=== PATIENT | male | born 1945 | race Caucasian/White ===

== ENCOUNTER 2022-01-01 13:45 | Inpatient (IN) ==
[2022-01-01 19:40] LABS: Basophils # 0.1 K/mcL (0.0-0.2); Basophils % 0.7 %; Eosinophils # 0.1 K/mcL (0.0-0.6); Eosinophils % 0.9 %; Hematocrit 38.2 % (37.5-50.1); Hemoglobin 12.3 g/dL (12.9-16.9); Immature Granulocytes % 0.3 % (0-4); Lymphocytes # 1.6 K/mcL (0.6-4.6); Lymphocytes % 23.8 %; Mean Corpuscular HGB Conc 32.2 g/dL (31.6-35.5); Mean Corpuscular Volume 93.2 fL (83.0-100.0); Mean Platelet Volume 10.9 fL (9.4-12.4); Monocytes # 0.7 K/mcL (0.0-1.3); Monocytes % 10.6 %; Neutrophils # 4.4 K/mcL (1.6-8.9); Platelet Count 210 K/mcL (140-400); Red Cell Distribution Width 14.1 % (11.5-14.5); Segmented Neutrophils % 63.7 %; White Blood Count 6.9 K/mcL (4.3-11.1)
[2022-01-01 19:52] LABS: INR 1.5; Prothrombin Time 16.6 Seconds (9.4-12.1)
[2022-01-01 20:00] LABS: Alanine Aminotransferase 13 Units/L (7-52); Albumin/Globulin Ratio 1.7 (1.1-2.2); Alkaline Phosphatase 85 Units/L (34-104); Aspartate Amino Transferase 18 Units/L (13-39); BUN/Creatinine Ratio 29 (6-26); Bilirubin,Total 0.4 mg/dL (0.3-1.0); Blood Urea Nitrogen 36 mg/dL (8-23); Calcium 9.8 mg/dL (8.6-10.3); Carbon Dioxide 30 mEq/L (23-29); Chloride 103 mEq/L (98-107); Globulin 2.4 g/dL (2.4-3.5); Glucose 173 mg/dL (70-105); Osmolality,Calculated 300 (280-300); Potassium 3.4 mEq/L (3.5-5.1); Sodium 139 mEq/L (136-145); Total Protein 6.4 g/dL (6.4-8.9); eGFR For African Americans > 60 (> 60); eGFR For Non-African Americans 55 (> 60)
[2022-01-01] MEDS ORDERED: levETIRAcetam 1,000 MG in 0.9 % Sodium Chloride 100 ML IVPB ONE (20:16)
[2022-01-02] MEDS ORDERED: Isovue-370 500 ML BOTTLE IVP ONE (09:55)
[2022-01-02] MEDS ORDERED: dexAMETHasone 4 MG TABLET PO ONE (11:42)
[2022-01-02] MEDS ORDERED: Gadolinium Contrast Agent (WT Based) IV PRN (11:45)
[2022-01-02] MEDS ORDERED: Naloxone 0.4 MG/ML INJ IVP PRN (14:02)
[2022-01-02] MEDS ORDERED: Acetaminophen 325 MG TABLET PO PRN (14:02)
[2022-01-02] MEDS ORDERED: Ondansetron 4 MG/2 ML VIAL IVP PRN (14:02)
[2022-01-02] MEDS ORDERED: Dextrose Gel 15 GM/37.5 ML TUBE PO PRN ×2 (14:11)
[2022-01-02] MEDS ORDERED: *HR* Dextrose 50 % in Water (Syg) 50 ML SYRINGE IVP PRN (14:11)
[2022-01-02] MEDS ORDERED: D5% in Water 1,000 ML IVC PRN (14:11)
[2022-01-02] MEDS: dexAMETHasone 4 MG TABLET PO SCH ×3 (14:50→22:20)
[2022-01-02 14:57] LABS: Estimated Average Glucose 126 mg/dl
[2022-01-02] MEDS: Insulin LISPRO 300 UNITS/3 ML VIAL SUBQ SCH ×2 (16:34→21:57)
[2022-01-02] MEDS: levETIRAcetam 250 MG TABLET PO SCH (17:16)
[2022-01-02] MEDS: clonazePAM 1 MG TABLET PO SCH (22:20)
[2022-01-03 01:13] LABS: Basophils % 0.2 %; Hematocrit 36.5 % (37.5-50.1); Hemoglobin 11.6 g/dL (12.9-16.9); Immature Granulocytes % 0.3 % (0-4); Lymphocytes # 0.8 K/mcL (0.6-4.6); Lymphocytes % 8.4 %; Mean Corpuscular HGB Conc 31.8 g/dL (31.6-35.5); Mean Corpuscular Hemoglobin 29.4 pg (28.0-33.3); Mean Corpuscular Volume 92.6 fL (83.0-100.0); Mean Platelet Volume 11.2 fL (9.4-12.4); Monocytes # 0.2 K/mcL (0.0-1.3); Monocytes % 1.9 %; Neutrophils # 8.5 K/mcL (1.6-8.9); Platelet Count 212 K/mcL (140-400); Red Blood Count 3.94 M/mcL (4.19-5.50); Red Cell Distribution Width 14.3 % (11.5-14.5); Segmented Neutrophils % 89.2 %; White Blood Count 9.5 K/mcL (4.3-11.1)
[2022-01-03 01:28] LABS: BUN/Creatinine Ratio 29 (6-26); Blood Urea Nitrogen 35 mg/dL (8-23); Calcium 9.4 mg/dL (8.6-10.3); Carbon Dioxide 25 mEq/L (23-29); Chloride 105 mEq/L (98-107); Glucose 177 mg/dL (70-105); Osmolality,Calculated 298 (280-300); Potassium 3.5 mEq/L (3.5-5.1); Sodium 138 mEq/L (136-145); eGFR For African Americans > 60 (> 60); eGFR For Non-African Americans 59 (> 60)
[2022-01-03] MEDS: levETIRAcetam 250 MG TABLET PO SCH ×2 (05:05→17:25)
[2022-01-03] MEDS: Insulin LISPRO 300 UNITS/3 ML VIAL SUBQ SCH ×4 (09:26→20:44)
[2022-01-03] MEDS: clonazePAM 1 MG TABLET PO SCH ×3 (09:26→22:06)
[2022-01-03] MEDS: dexAMETHasone 4 MG TABLET PO SCH ×4 (09:26→20:44)
[2022-01-03] MEDS ORDERED: NON-FORMULARY MEDICATION 1 EACH EACH PO SCH (17:00)
[2022-01-03] MEDS: PHENELZINE SULFATE 15 MG PO SCH ×2 (17:25→22:07)
[2022-01-04] MEDS: levETIRAcetam 250 MG TABLET PO SCH ×2 (05:03→18:24)
[2022-01-04] MEDS: clonazePAM 1 MG TABLET PO SCH ×3 (08:06→20:50)
[2022-01-04] MEDS: dexAMETHasone 4 MG TABLET PO SCH ×4 (08:07→20:50)
[2022-01-04] MEDS: PHENELZINE SULFATE 15 MG PO SCH ×3 (08:10→21:41)
[2022-01-04] MEDS: Insulin LISPRO 300 UNITS/3 ML VIAL SUBQ SCH ×4 (08:52→21:38)
[2022-01-05 02:38] LABS: Basophils % 0.1 %; Hematocrit 36.6 % (37.5-50.1); Hemoglobin 12.2 g/dL (12.9-16.9); Immature Granulocytes % 0.8 % (0-4); Lymphocytes # 0.7 K/mcL (0.6-4.6); Lymphocytes % 6.3 %; Mean Corpuscular HGB Conc 33.3 g/dL (31.6-35.5); Mean Corpuscular Hemoglobin 30.7 pg (28.0-33.3); Mean Platelet Volume 11.3 fL (9.4-12.4); Monocytes # 0.2 K/mcL (0.0-1.3); Monocytes % 2.1 %; Neutrophils # 9.3 K/mcL (1.6-8.9); Platelet Count 220 K/mcL (140-400); Red Blood Count 3.98 M/mcL (4.19-5.50); Red Cell Distribution Width 14.1 % (11.5-14.5); Segmented Neutrophils % 90.7 %; White Blood Count 10.3 K/mcL (4.3-11.1)
[2022-01-05 03:01] LABS: BUN/Creatinine Ratio 40 (6-26); Blood Urea Nitrogen 48 mg/dL (8-23); Calcium 9.2 mg/dL (8.6-10.3); Carbon Dioxide 27 mEq/L (23-29); Chloride 102 mEq/L (98-107); Glucose 181 mg/dL (70-105); Magnesium 1.7 mg/dL (1.6-2.6); Osmolality,Calculated 299 (280-300); Phosphorous 2.6 mg/dL (2.7-4.5); Potassium 3.9 mEq/L (3.5-5.1); Sodium 136 mEq/L (136-145); eGFR For African Americans > 60 (> 60); eGFR For Non-African Americans 58 (> 60)
[2022-01-05] MEDS: levETIRAcetam 250 MG TABLET PO SCH ×2 (05:35→18:02)
[2022-01-05] MEDS: Insulin LISPRO 300 UNITS/3 ML VIAL SUBQ SCH ×3 (09:44→18:14)
[2022-01-05] MEDS: dexAMETHasone 4 MG TABLET PO SCH ×4 (09:51→21:42)
[2022-01-05] MEDS: clonazePAM 1 MG TABLET PO SCH ×3 (09:52→21:42)
[2022-01-05] MEDS: PHENELZINE SULFATE 15 MG PO SCH ×3 (11:50→18:06)
[2022-01-06] MEDS: Insulin LISPRO 300 UNITS/3 ML VIAL SUBQ SCH ×3 (00:44→12:19)
[2022-01-06 03:53] LABS: Basophils % 0.1 %; Hematocrit 40.3 % (37.5-50.1); Hemoglobin 13.2 g/dL (12.9-16.9); Immature Granulocytes % 0.8 % (0-4); Lymphocytes # 0.7 K/mcL (0.6-4.6); Lymphocytes % 7.4 %; Mean Corpuscular HGB Conc 32.8 g/dL (31.6-35.5); Mean Corpuscular Hemoglobin 30.1 pg (28.0-33.3); Mean Corpuscular Volume 91.8 fL (83.0-100.0); Mean Platelet Volume 11.4 fL (9.4-12.4); Monocytes # 0.5 K/mcL (0.0-1.3); Monocytes % 5.4 %; Neutrophils # 8.4 K/mcL (1.6-8.9); Platelet Count 225 K/mcL (140-400); Red Blood Count 4.39 M/mcL (4.19-5.50); Red Cell Distribution Width 13.9 % (11.5-14.5); Segmented Neutrophils % 86.3 %; White Blood Count 9.7 K/mcL (4.3-11.1)
[2022-01-06 04:14] LABS: BUN/Creatinine Ratio 36 (6-26); Blood Urea Nitrogen 42 mg/dL (8-23); Calcium 9.2 mg/dL (8.6-10.3); Carbon Dioxide 28 mEq/L (23-29); Chloride 101 mEq/L (98-107); Glucose 167 mg/dL (70-105); Magnesium 1.8 mg/dL (1.6-2.6); Osmolality,Calculated 296 (280-300); Phosphorous 2.6 mg/dL (2.7-4.5); Potassium 3.7 mEq/L (3.5-5.1); Sodium 136 mEq/L (136-145); eGFR For African Americans > 60 (> 60); eGFR For Non-African Americans > 60 (> 60)
[2022-01-06] MEDS: levETIRAcetam 250 MG TABLET PO SCH (06:08)
[2022-01-06] MEDS: clonazePAM 1 MG TABLET PO SCH (08:06)
[2022-01-06] MEDS: dexAMETHasone 4 MG TABLET PO SCH ×2 (08:06→14:00)
[2022-01-06] MEDS: PHENELZINE SULFATE 15 MG PO SCH (08:08)
[2022-01-06 10:37] VITALS: BP 105/62; PULSE 82; TEMP 98.3; O2SAT 94
== END 2022-01-06 14:08 | disposition home or self-care (01) | DRG 54 ==
LOC: EMEROOARM 13:45 → 3ANU 13:45
PROVIDERS: ADMIT General Practice; ATTEND General Practice

== ENCOUNTER 2022-02-13 13:20 | Inpatient (IN) ==
[2022-02-13] MEDS ORDERED: Ondansetron 4 MG/2 ML VIAL IVP PRN (16:47)
[2022-02-13] MEDS ORDERED: Naloxone 0.4 MG/ML INJ IVP PRN (16:47)
[2022-02-13] MEDS ORDERED: Acetaminophen 325 MG TABLET PO PRN (16:47)
[2022-02-13] MEDS: levoFLOXacin 750 MG/150 ML 750 MG/150 ML BAG IVPB SCH (17:39)
[2022-02-13 17:46] LABS: BUN/Creatinine Ratio 19 (6-26); Blood Urea Nitrogen 16 mg/dL (8-23); Calcium 7.9 mg/dL (8.6-10.3); Carbon Dioxide 26 mEq/L (23-29); Chloride 106 mEq/L (98-107); Glucose 109 mg/dL (70-105); Osmolality,Calculated 288 (280-300); Potassium 3.4 mEq/L (3.5-5.1); Sodium 138 mEq/L (136-145); eGFR For African Americans > 60 (> 60); eGFR For Non-African Americans > 60 (> 60)
[2022-02-13] MEDS ORDERED: D5% in 0.9% NACL w KCl 20 MEQ/1,000 ML MLS IVC SCH (18:00)
[2022-02-13] MEDS ORDERED: *HR* Dextrose 50 % in Water (Syg) 50 ML SYRINGE IVP PRN (18:17)
[2022-02-13] MEDS ORDERED: Dextrose 4 GM Chewable Tablets PO PRN ×2 (18:17)
[2022-02-13] MEDS ORDERED: D5% in Water 1,000 ML IVC PRN (18:17)
[2022-02-13] MEDS ORDERED: *HR* LORazepam 2 MG/ML VIAL IVP PRN (18:21)
[2022-02-13] MEDS ORDERED: *HR* Metoprolol 5 MG/5 ML VIAL IVP PRN (18:22)
[2022-02-13] MEDS: Apixaban 5 MG TABLET PO SCH (22:04)
[2022-02-14] MEDS: Insulin LISPRO 300 UNITS/3 ML VIAL SUBQ SCH ×4 (01:44→20:19)
[2022-02-14 06:32] LABS: Hematocrit 31.7 % (37.5-50.1); Hemoglobin 10.5 g/dL (12.9-16.9); Lymphocytes # 1.3 K/mcL (0.6-4.6); Mean Corpuscular HGB Conc 33.1 g/dL (31.6-35.5); Mean Corpuscular Hemoglobin 30.3 pg (28.0-33.3); Mean Corpuscular Volume 91.4 fL (83.0-100.0); Mean Platelet Volume 9.8 fL (9.4-12.4); Platelet Count 132 K/mcL (140-400); Red Blood Count 3.47 M/mcL (4.19-5.50); Red Cell Distribution Width 14.2 % (11.5-14.5); White Blood Count 4.4 K/mcL (4.3-11.1)
[2022-02-14 06:39] LABS: INR 3.1; Prothrombin Time 33.9 Seconds (9.4-12.1)
[2022-02-14 06:58] LABS: Albumin 2.8 g/dL (3.5-5.7); Albumin/Globulin Ratio 1.3 (1.1-2.2); Bilirubin,Direct 0.1 mg/dL (0.0-0.2); Bilirubin,Indirect 0.5 mg/dL (0.0-1.0); Bilirubin,Total 0.6 mg/dL (0.3-1.0); Globulin 2.1 g/dL (2.4-3.5); Total Protein 4.9 g/dL (6.4-8.9)
[2022-02-14 07:08] LABS: Thyroid Stimulating Hormone 0.028 mcIU/mL (0.340-5.600)
[2022-02-14 07:09] LABS: Triiodothyronine (T3) Free 2.72 pg/mL (2.50-3.90)
[2022-02-14 07:10] LABS: BUN/Creatinine Ratio 21 (6-26); Blood Urea Nitrogen 17 mg/dL (8-23); Calcium 8.2 mg/dL (8.6-10.3); Carbon Dioxide 27 mEq/L (23-29); Chloride 107 mEq/L (98-107); Glucose 207 mg/dL (70-105); Magnesium 1.6 mg/dL (1.6-2.6); Neutrophils # 3.1 K/mcL (1.6-8.9); Osmolality,Calculated 294 (280-300); Potassium 3.8 mEq/L (3.5-5.1); Sodium 138 mEq/L (136-145); eGFR For African Americans > 60 (> 60); eGFR For Non-African Americans > 60 (> 60)
[2022-02-14 07:11] LABS: Platelet Estimate Decreased (Normal); Reactive Lymphocytes Present (Not Present)
[2022-02-14] MEDS: levoFLOXacin 750 MG/150 ML 750 MG/150 ML BAG IVPB SCH (08:06)
[2022-02-14] MEDS: Apixaban 5 MG TABLET PO SCH ×2 (08:08→20:18)
[2022-02-14] MEDS: Pantoprazole 40 MG VIAL IVP SCH (08:08)
[2022-02-14] MEDS ORDERED: Levothyroxine Sodium 100 MCG VIAL IVP SCH (09:00)
[2022-02-14] MEDS: levETIRAcetam 250 MG TABLET PO SCH (14:42)
[2022-02-14] MEDS: PHENELZINE SULFATE 15 MG PO SCH ×2 (14:43→20:22)
[2022-02-14] MEDS: clonazePAM 1 MG TABLET PO SCH (20:17)
[2022-02-15] MEDS: levETIRAcetam 250 MG TABLET PO SCH ×2 (03:23→12:39)
[2022-02-15 07:13] LABS: Basophils % 0.2 %; Hematocrit 31.3 % (37.5-50.1); Hemoglobin 10.2 g/dL (12.9-16.9); Immature Granulocytes % 1.4 % (0-4); Lymphocytes # 1.7 K/mcL (0.6-4.6); Lymphocytes % 20.9 %; Mean Corpuscular HGB Conc 32.6 g/dL (31.6-35.5); Mean Corpuscular Hemoglobin 29.6 pg (28.0-33.3); Mean Corpuscular Volume 90.7 fL (83.0-100.0); Mean Platelet Volume 9.8 fL (9.4-12.4); Monocytes # 0.6 K/mcL (0.0-1.3); Monocytes % 7.1 %; Platelet Count 179 K/mcL (140-400); Red Blood Count 3.45 M/mcL (4.19-5.50); Red Cell Distribution Width 14.5 % (11.5-14.5); Segmented Neutrophils % 70.4 %
[2022-02-15 07:28] LABS: Neutrophils # 5.6 K/mcL (1.6-8.9)
[2022-02-15 07:35] LABS: BUN/Creatinine Ratio 24 (6-26); Blood Urea Nitrogen 22 mg/dL (8-23); Calcium 8.4 mg/dL (8.6-10.3); Carbon Dioxide 28 mEq/L (23-29); Chloride 105 mEq/L (98-107); Glucose 194 mg/dL (70-105); Magnesium 1.7 mg/dL (1.6-2.6); Osmolality,Calculated 293 (280-300); Potassium 3.4 mEq/L (3.5-5.1); Sodium 137 mEq/L (136-145); eGFR For African Americans > 60 (> 60); eGFR For Non-African Americans > 60 (> 60)
[2022-02-15] MEDS ORDERED: Potassium Chloride Elixir 20 MEQ/15 ML UDC PO ONE (07:52)
[2022-02-15] MEDS: clonazePAM 1 MG TABLET PO SCH ×2 (08:23→20:46)
[2022-02-15] MEDS: Apixaban 5 MG TABLET PO SCH ×2 (08:23→20:46)
[2022-02-15] MEDS: Multivit/Ca/Min/Fe/FA 1 TAB TABLET PO SCH (08:23)
[2022-02-15] MEDS: Pantoprazole 40 MG VIAL IVP SCH (08:24)
[2022-02-15] MEDS: levoFLOXacin 750 MG/150 ML 750 MG/150 ML BAG IVPB SCH (08:24)
[2022-02-15] MEDS: PHENELZINE SULFATE 15 MG PO SCH ×3 (08:24→20:53)
[2022-02-15] MEDS: Insulin LISPRO 300 UNITS/3 ML VIAL SUBQ SCH ×4 (08:25→20:39)
[2022-02-16] MEDS: levETIRAcetam 250 MG TABLET PO SCH ×2 (01:00→13:01)
[2022-02-16 05:32] LABS: Basophils # 0.1 K/mcL (0.0-0.2); Basophils % 0.7 %; Hematocrit 33.1 % (37.5-50.1); Hemoglobin 10.9 g/dL (12.9-16.9); Lymphocytes # 1.6 K/mcL (0.6-4.6); Lymphocytes % 15.2 %; Mean Corpuscular HGB Conc 32.9 g/dL (31.6-35.5); Mean Corpuscular Hemoglobin 29.8 pg (28.0-33.3); Mean Corpuscular Volume 90.4 fL (83.0-100.0); Monocytes # 0.6 K/mcL (0.0-1.3); Monocytes % 5.7 %; Neutrophils # 7.6 K/mcL (1.6-8.9); Platelet Count 236 K/mcL (140-400); Red Blood Count 3.66 M/mcL (4.19-5.50); Red Cell Distribution Width 14.3 % (11.5-14.5); Segmented Neutrophils % 73.4 %; White Blood Count 10.3 K/mcL (4.3-11.1)
[2022-02-16 05:49] LABS: BUN/Creatinine Ratio 35 (6-26); Blood Urea Nitrogen 29 mg/dL (8-23); Calcium 8.4 mg/dL (8.6-10.3); Carbon Dioxide 27 mEq/L (23-29); Chloride 102 mEq/L (98-107); Glucose 208 mg/dL (70-105); Magnesium 1.7 mg/dL (1.6-2.6); Osmolality,Calculated 290 (280-300); Potassium 3.9 mEq/L (3.5-5.1); Sodium 134 mEq/L (136-145); eGFR For African Americans > 60 (> 60); eGFR For Non-African Americans > 60 (> 60)
[2022-02-16 08:11] VITALS: BP 173/74; PULSE 60; TEMP 97.9; O2SAT 92
[2022-02-16] MEDS: Insulin LISPRO 300 UNITS/3 ML VIAL SUBQ SCH ×2 (08:38→12:15)
[2022-02-16] MEDS: Apixaban 5 MG TABLET PO SCH (08:39)
[2022-02-16] MEDS: Multivit/Ca/Min/Fe/FA 1 TAB TABLET PO SCH (08:39)
[2022-02-16] MEDS: clonazePAM 1 MG TABLET PO SCH (08:39)
[2022-02-16] MEDS: Pantoprazole 40 MG VIAL IVP SCH (08:39)
[2022-02-16] MEDS: levoFLOXacin 750 MG/150 ML 750 MG/150 ML BAG IVPB SCH (08:40)
[2022-02-16] MEDS: PHENELZINE SULFATE 15 MG PO SCH (08:41)
== END 2022-02-16 14:34 | disposition home health service (06) | DRG 194 ==
LOC: 3ANU → SUATTDRO 16:00
PROVIDERS: ADMIT Pharmacist; ATTEND Pharmacist

== ENCOUNTER 2022-02-20 14:23 | Inpatient (IN) ==
[2022-02-20] MEDS ORDERED: 0.9 % Sodium Chloride 1,000 ML ONE (14:57)
[2022-02-20] MEDS ORDERED: 0.9 % Sodium Chloride 1,000 ML IVC ONE (15:08)
[2022-02-20 15:45] LABS: Hematocrit 38.1 % (37.5-50.1); Hemoglobin 12.4 g/dL (12.9-16.9); Mean Corpuscular HGB Conc 32.5 g/dL (31.6-35.5); Mean Corpuscular Volume 92.3 fL (83.0-100.0); Mean Platelet Volume 9.8 fL (9.4-12.4); Nucleated Red Blood Cells 0.2 /100 WBC (0); Platelet Count 318 K/mcL (140-400); Red Blood Count 4.13 M/mcL (4.19-5.50); Red Cell Distribution Width 14.2 % (11.5-14.5); White Blood Count 10.6 K/mcL (4.3-11.1)
[2022-02-20 15:51] LABS: Alanine Aminotransferase 36 Units/L (7-52); Albumin 3.2 g/dL (3.5-5.7); Albumin/Globulin Ratio 1.2 (1.1-2.2); Alkaline Phosphatase 86 Units/L (34-104); Aspartate Amino Transferase 28 Units/L (13-39); BUN/Creatinine Ratio 29 (6-26); Bilirubin,Direct 0.1 mg/dL (0.0-0.2); Bilirubin,Indirect 0.6 mg/dL (0.0-1.0); Bilirubin,Total 0.7 mg/dL (0.3-1.0); Blood Urea Nitrogen 31 mg/dL (8-23); Carbon Dioxide 30 mEq/L (23-29); Chloride 101 mEq/L (98-107); Globulin 2.7 g/dL (2.4-3.5); Glucose 162 mg/dL (70-105); Magnesium 1.9 mg/dL (1.6-2.6); Osmolality,Calculated 298 (280-300); Potassium 3.5 mEq/L (3.5-5.1); Sodium 139 mEq/L (136-145); Total Protein 5.9 g/dL (6.4-8.9); Troponin I 0.04 ng/mL (< 0.04); eGFR For African Americans > 60 (> 60); eGFR For Non-African Americans > 60 (> 60)
[2022-02-20 15:52] LABS: Prothrombin Time 16.1 Seconds (9.4-12.1)
[2022-02-20 15:53] LABS: INR 1.4
[2022-02-20 15:55] LABS: Activated Partial Thrombo Time 26.1 Seconds (26.0-36.0)
[2022-02-20] MEDS ORDERED: levETIRAcetam 1,000 MG in 0.9 % Sodium Chloride 100 ML IVPB ONE (16:00)
[2022-02-20 16:25] LABS: Neutrophils # 8.1 K/mcL (1.6-8.9)
[2022-02-20 16:26] LABS: Platelet Estimate Normal (Normal); Reactive Lymphocytes Present (Not Present)
[2022-02-20 16:28] LABS: Lymphocytes # 1.1 K/mcL (0.6-4.6); Monocytes # 0.9 K/mcL (0.0-1.3)
[2022-02-20 16:49] LABS: Bilirubin,Urine Negative (Negative); Blood,Urine Trace (Negative); Clarity,Urine Clear (Clear); Color,Urine Light-Yellow (Yellow); Glucose,Urine (UA) Normal (Normal); Ketones,Urine Negative (Negative); Leukocyte Esterase,Urine Negative (Negative); Mucus,Urine Few per lpf (None-Few); Nitrite,Urine Negative (Negative); Protein,Urine Trace mg/dL (Neg-Trace); Specific Gravity,Urine 1.017 (1.010-1.025); Squamous Epithelial Cell,Urine Few per hpf (None-Few); Urobilinogen,Urine Normal (Normal); WBC,Urine 0-3 per hpf (0-3)
[2022-02-21] MEDS ORDERED: Ondansetron 4 MG/2 ML VIAL IVP PRN (02:07)
[2022-02-21] MEDS ORDERED: Naloxone 0.4 MG/ML INJ IVP PRN (02:07)
[2022-02-21] MEDS ORDERED: Melatonin 3 MG TABLET PO PRN (02:07)
[2022-02-21] MEDS ORDERED: levETIRAcetam 1,000 MG in 0.9 % Sodium Chloride 100 ML IVPB ONE (04:00)
[2022-02-21] MEDS ORDERED: D5% in Water 1,000 ML IVC PRN (06:12)
[2022-02-21] MEDS ORDERED: Dextrose 4 GM Chewable Tablets PO PRN ×2 (06:12)
[2022-02-21] MEDS ORDERED: *HR* Dextrose 50 % in Water (Syg) 50 ML SYRINGE IVP PRN (06:12)
[2022-02-21] MEDS: Piperacillin/Tazobactam 3.375 GM in 0.9 % Sodium Chloride Mini Bag 100 ML IVPB SCH ×3 (07:39→22:59)
[2022-02-21 08:19] LABS: Hematocrit 33.4 % (37.5-50.1); Hemoglobin 11.2 g/dL (12.9-16.9); Mean Corpuscular HGB Conc 33.5 g/dL (31.6-35.5); Mean Corpuscular Hemoglobin 30.4 pg (28.0-33.3); Mean Corpuscular Volume 90.8 fL (83.0-100.0); Mean Platelet Volume 9.7 fL (9.4-12.4); Platelet Count 273 K/mcL (140-400); Red Blood Count 3.68 M/mcL (4.19-5.50); Red Cell Distribution Width 14.1 % (11.5-14.5); White Blood Count 12.1 K/mcL (4.3-11.1)
[2022-02-21 08:48] LABS: Alanine Aminotransferase 30 Units/L (7-52); Albumin 2.8 g/dL (3.5-5.7); Albumin/Globulin Ratio 1.6 (1.1-2.2); Alkaline Phosphatase 69 Units/L (34-104); Aspartate Amino Transferase 25 Units/L (13-39); BUN/Creatinine Ratio 39 (6-26); Bilirubin,Total 0.6 mg/dL (0.3-1.0); Blood Urea Nitrogen 32 mg/dL (8-23); Calcium 8.2 mg/dL (8.6-10.3); Carbon Dioxide 28 mEq/L (23-29); Chloride 105 mEq/L (98-107); Globulin 1.8 g/dL (2.4-3.5); Glucose 155 mg/dL (70-105); Magnesium 1.9 mg/dL (1.6-2.6); Osmolality,Calculated 294 (280-300); Phosphorous 2.8 mg/dL (2.7-4.5); Potassium 3.4 mEq/L (3.5-5.1); Sodium 137 mEq/L (136-145); Total Protein 4.6 g/dL (6.4-8.9); Troponin I 0.04 ng/mL (< 0.04); eGFR For African Americans > 60 (> 60); eGFR For Non-African Americans > 60 (> 60)
[2022-02-21] MEDS ORDERED: Apixaban 5 MG TABLET PO SCH (09:00)
[2022-02-21 09:10] LABS: Lymphocytes # 2.2 K/mcL (0.6-4.6); Monocytes # 0.7 K/mcL (0.0-1.3); Neutrophils # 9.2 K/mcL (1.6-8.9); Platelet Estimate Normal (Normal)
[2022-02-21] MEDS: PHENELZINE SULFATE 15 MG PO SCH ×3 (10:05→19:48)
[2022-02-21] MEDS: levETIRAcetam 250 MG TABLET PO SCH ×3 (10:40→19:48)
[2022-02-21] MEDS: 0.9 % Sodium Chloride 1,000 ML IVC SCH (13:47)
[2022-02-21] MEDS: dexAMETHasone 4 MG TABLET PO SCH ×2 (16:26→19:48)
[2022-02-21] MEDS ORDERED: Insulin LISPRO 300 UNITS/3 ML VIAL SUBQ SCH (21:00)
[2022-02-22] MEDS: Piperacillin/Tazobactam 3.375 GM in 0.9 % Sodium Chloride Mini Bag 100 ML IVPB SCH ×3 (06:00→22:24)
[2022-02-22] MEDS: Aspirin 81 MG TAB.CHEW PO SCH (07:44)
[2022-02-22] MEDS: dexAMETHasone 4 MG TABLET PO SCH ×2 (07:44→19:51)
[2022-02-22] MEDS: levETIRAcetam 250 MG TABLET PO SCH ×3 (07:44→19:51)
[2022-02-22] MEDS: PHENELZINE SULFATE 15 MG PO SCH ×3 (07:45→19:51)
[2022-02-22] MEDS: 0.9 % Sodium Chloride 1,000 ML IVC SCH (10:27)
[2022-02-22] MEDS: Insulin LISPRO 300 UNITS/3 ML VIAL SUBQ SCH ×2 (17:18→19:42)
[2022-02-22] MEDS: clonazePAM 1 MG TABLET PO SCH (19:51)
[2022-02-23] MEDS: Piperacillin/Tazobactam 3.375 GM in 0.9 % Sodium Chloride Mini Bag 100 ML IVPB SCH ×3 (05:17→21:00)
[2022-02-23] MEDS: clonazePAM 1 MG TABLET PO SCH ×2 (08:13→20:59)
[2022-02-23] MEDS: Insulin LISPRO 300 UNITS/3 ML VIAL SUBQ SCH ×4 (08:13→21:01)
[2022-02-23] MEDS: Aspirin 81 MG TAB.CHEW PO SCH (08:13)
[2022-02-23] MEDS: dexAMETHasone 4 MG TABLET PO SCH ×2 (08:13→20:59)
[2022-02-23] MEDS: levETIRAcetam 250 MG TABLET PO SCH ×3 (08:13→20:59)
[2022-02-23] MEDS: PHENELZINE SULFATE 15 MG PO SCH ×3 (08:13→21:02)
[2022-02-23] MEDS ORDERED: E-Z-PAQUE (BARIUM SULF) SUSP 1 BOTTLE PO ONE (15:09)
[2022-02-23] MEDS ORDERED: E-Z-HD (BARIUM SULF) SUSPENSION PO ONE (15:09)
[2022-02-24] MEDS: Insulin LISPRO 300 UNITS/3 ML VIAL SUBQ SCH ×2 (08:21→11:42)
[2022-02-24] MEDS: dexAMETHasone 4 MG TABLET PO SCH (08:22)
[2022-02-24] MEDS: Aspirin 81 MG TAB.CHEW PO SCH (08:22)
[2022-02-24] MEDS: levETIRAcetam 250 MG TABLET PO SCH (08:22)
[2022-02-24] MEDS: PHENELZINE SULFATE 15 MG PO SCH (08:23)
[2022-02-24 10:34] VITALS: BP 100/62; PULSE 59; TEMP 98.1; O2SAT 96
[2022-02-24] MEDS: clonazePAM 1 MG TABLET PO SCH (11:41)
== END 2022-02-24 13:53 | disposition home or self-care (01) | DRG 312 ==
LOC: 3BNU 14:23 → EMEROOARM 14:23 → SUATTDRO 02-21 01:28 → 3BNU 02-21 01:59
PROVIDERS: ADMIT Internal Medicine; ATTEND Registered Nurse

== ENCOUNTER 2022-03-03 18:19 | Observation (INO) ==
[2022-03-03] MEDS ORDERED: *HR* HYDROcodone/Acet 5/325 mg TABLET PO PRN (21:58)
[2022-03-03] MEDS ORDERED: Ondansetron 4 MG/2 ML VIAL IVP PRN (21:58)
[2022-03-03] MEDS ORDERED: Naloxone 0.4 MG/ML INJ IVP PRN (21:58)
[2022-03-03] MEDS ORDERED: Acetaminophen 325 MG TABLET PO PRN (21:58)
[2022-03-03] MEDS ORDERED: *HR* LORazepam 2 MG/ML VIAL IVP PRN (22:56)
[2022-03-03] MEDS: levETIRAcetam 250 MG TABLET PO SCH (23:54)
[2022-03-03] MEDS: dexAMETHasone 4 MG TABLET PO SCH (23:54)
[2022-03-04 01:18] LABS: Prolactin 8.75 ng/mL (3.00-14.70)
[2022-03-04 06:40] LABS: Basophils % 0.2 %; Hematocrit 34.9 % (37.5-50.1); Hemoglobin 11.2 g/dL (12.9-16.9); Immature Granulocytes % 1.3 % (0-4); Lymphocytes # 1.2 K/mcL (0.6-4.6); Lymphocytes % 12.9 %; Mean Corpuscular HGB Conc 32.1 g/dL (31.6-35.5); Mean Corpuscular Hemoglobin 29.5 pg (28.0-33.3); Mean Corpuscular Volume 91.8 fL (83.0-100.0); Monocytes # 0.4 K/mcL (0.0-1.3); Monocytes % 4.8 %; Neutrophils # 7.5 K/mcL (1.6-8.9); Nucleated Red Blood Cells 0.2 /100 WBC (0); Platelet Count 167 K/mcL (140-400); Red Cell Distribution Width 14.7 % (11.5-14.5); Segmented Neutrophils % 80.8 %; White Blood Count 9.2 K/mcL (4.3-11.1)
[2022-03-04 06:43] LABS: INR 1.2; Prothrombin Time 13.8 Seconds (9.4-12.1)
[2022-03-04 06:46] LABS: Activated Partial Thrombo Time 22.9 Seconds (26.0-36.0)
[2022-03-04 06:50] LABS: BUN/Creatinine Ratio 44 (6-26); Blood Urea Nitrogen 26 mg/dL (8-23); Calcium 8.6 mg/dL (8.6-10.3); Carbon Dioxide 28 mEq/L (23-29); Chloride 105 mEq/L (98-107); Glucose 161 mg/dL (70-105); Magnesium 1.8 mg/dL (1.6-2.6); Osmolality,Calculated 294 (280-300); Phosphorous 2.9 mg/dL (2.7-4.5); Potassium 3.9 mEq/L (3.5-5.1); Sodium 138 mEq/L (136-145); eGFR For African Americans > 60 (> 60); eGFR For Non-African Americans > 60 (> 60)
[2022-03-04 07:02] LABS: Thyroid Stimulating Hormone < 0.010 mcIU/mL (0.340-5.600)
[2022-03-04 08:21] LABS: Triiodothyronine (T3) Total 54 ng/dL (87-178)
[2022-03-04] MEDS: Insulin LISPRO 300 UNITS/3 ML VIAL SUBQ SCH ×3 (09:18→16:45)
[2022-03-04] MEDS: dexAMETHasone 4 MG TABLET PO SCH ×2 (09:22→19:54)
[2022-03-04] MEDS: Multivit/Ca/Min/Fe/FA 1 TAB TABLET PO SCH (09:22)
[2022-03-04] MEDS: clonazePAM 1 MG TABLET PO SCH ×2 (09:22→19:53)
[2022-03-04] MEDS: Aspirin 81 MG TAB.CHEW PO SCH (09:22)
[2022-03-04] MEDS: levETIRAcetam 250 MG TABLET PO SCH ×3 (09:22→19:54)
[2022-03-04] MEDS ORDERED: 0.9 % Sodium Chloride 500 ML IVC ONE ×2 (11:05→12:05)
[2022-03-04] MEDS: 0.9 % Sodium Chloride 1,000 ML IVC SCH ×2 (11:56→18:15)
[2022-03-04] MEDS ORDERED: 0.9 % Sodium Chloride 250 ML IV ONE (13:03)
[2022-03-05] MEDS: Insulin LISPRO 300 UNITS/3 ML VIAL SUBQ SCH ×3 (08:00→17:16)
[2022-03-05] MEDS: levETIRAcetam 250 MG TABLET PO SCH ×3 (09:14→21:10)
[2022-03-05] MEDS: Multivit/Ca/Min/Fe/FA 1 TAB TABLET PO SCH (09:14)
[2022-03-05] MEDS: dexAMETHasone 4 MG TABLET PO SCH ×2 (09:14→21:10)
[2022-03-05] MEDS: Aspirin 81 MG TAB.CHEW PO SCH (09:14)
[2022-03-05] MEDS: clonazePAM 1 MG TABLET PO SCH ×2 (09:14→21:10)
[2022-03-05] MEDS ORDERED: Lidocaine Jelly 11 ml Syringe ONE (09:55)
[2022-03-05] MEDS: 0.9 % Sodium Chloride 1,000 ML IVC SCH (12:33)
[2022-03-06] MEDS ORDERED: PHENELZINE SULFATE 15 MG PO SCH (09:00)
[2022-03-06] MEDS: clonazePAM 1 MG TABLET PO SCH (09:51)
[2022-03-06] MEDS: Multivit/Ca/Min/Fe/FA 1 TAB TABLET PO SCH (09:51)
[2022-03-06] MEDS: dexAMETHasone 4 MG TABLET PO SCH (09:51)
[2022-03-06] MEDS: levETIRAcetam 250 MG TABLET PO SCH (09:51)
[2022-03-06] MEDS: Insulin LISPRO 300 UNITS/3 ML VIAL SUBQ SCH (09:52)
[2022-03-06 12:01] VITALS: BP 122/84; PULSE 79; TEMP 98.1; O2SAT 96
[2022-03-06] MEDS: Aspirin 81 MG TAB.CHEW PO SCH (12:05)
== END 2022-03-06 12:49 | disposition home health service (06) ==
LOC: 3BNU → SUATTDRO 21:12 → 2NENU 03-04 14:29
PROVIDERS: ADMIT Internal Medicine; ATTEND Internal Medicine